=== PATIENT | female | born 1990 | race Caucasian/White ===

== ENCOUNTER → 2020-07-03 14:32 | Outpatient (BNVA) | payer MEDICAID, SELFPAY | PROVIDERS: Family Provider Family Medicine; PCP Family Medicine; Visit Provider Family Medicine | DX: N92.6 Irregular menstruation, unspecified (principal) | CPT/HCPCS: 81025 ==

== ENCOUNTER → 2021-04-04 11:38 | Outpatient (BNVA) | payer MEDICAID, SELFPAY | PROVIDERS: Family Provider Family Medicine; PCP Family Medicine; Visit Provider Emergency Medicine | DX: S99.929A Unspecified injury of unspecified foot, initial encounter (principal); X58.XXXA Exposure to other specified factors, initial encounter | CPT/HCPCS: 73660 ==

== ENCOUNTER → 2021-05-08 16:14 | Outpatient (BNVA) | payer MEDICAID, SELFPAY | PROVIDERS: Family Provider Family Medicine; PCP Family Medicine; Visit Provider Nurse Practitioner Family | DX: Z20.822 Contact with and (suspected) exposure to COVID-19 (principal); J06.9 Acute upper respiratory infection, unspecified | CPT/HCPCS: 87635 ==

== ENCOUNTER 2021-06-11 01:25 | Emergency (ER) | payer MEDICAID, SELFPAY ==
[2021-06-11 01:38] VITALS: BP 115/78; PULSE 83; RESP 18; TEMP 36.9; O2SAT 96; BMI 30.9
--- NOTE | 2021-06-11 02:51 | W.ED.ABDPA2 ---
HPI - Abdominal Pain General: Chief Complaint: Abdominal Pain Stated Complaint: abd pain Time Seen by Provider: 06/11/21 02:42 Source: patient and EMS Mode of arrival: EMS Limitations: no limitations History of Present Illness: HPI narrative: 30-year-old female who states she started having abdominal pain at 1130 to midnight. States pain was epigastric right upper quadrant and sharp in nature. States that its worst was an 8 out of 10 currently is 2 out of 10. Denies any nausea vomiting. States it also radiated to her back. Denies any dysuria or diarrhea. She denies any worsening improving factors. Associated Symptoms: Denies chills, dysuria and fever(s) Review of Systems Const: Denies: fever(s), chills, body aches or change in appetite Eyes: Denies: blurry vision or eye discomfort ENMT: Denies: throat pain or dental pain Card: Denies: chest pain Resp: Denies: dyspnea GI: Reports: abdominal pain : Denies: dysuria Musc: Denies: neck pain or back pain Skin/Breast: Denies: rash Neuro: Denies: headache(s) Psych: Denies: depression David/Lymph: Denies: easy bruising All/Imm: Denies: urticaria PFSH ED PFSH: Medical History (Updated 06/11/21 @ 05:28 by Patricia Diane MD) SHANIKA (generalized anxiety disorder) Insomnia Surgical History H/O tubal ligation Family History Other CAD (coronary artery disease) Cancer Hypertension Stroke Social History Second hand smoke exposure: No Alcohol intake: never Desire information about alcohol rehabilitation?: No Desire information about substance/drug rehabilitation?: No History of recent travel: No Current gender identity: Female Female Reproductive History: Spontaneous abortions: No Physical Exam Const: COMMON NORMALS: no acute distress, patient oriented x3 and healthy appearing HENMT: COMMON NORMALS: normocephalic and atraumatic HEAD & SCALP: normocephalic and atraumatic Eye: COMMON NORMALS: Equal, round and reactive pupils present and EOMs intact bilaterally PUPIL: Yes Equal, round and reactive pupils present Neck/C-Spine: COMMON NORMALS: full ROM and supple Chest: COMMONS NORMALS: normal inspection of the chest and normal palpation of entire chest wall Resp: COMMON NORMALS: normal respiratory effort, No retractions, No use of accessory muscles and clear to auscultation bilaterally AUSCULTATION: clear to auscultation bilaterally Cardio: COMMON NORMALS: regular rate, regular rhythm and No murmurs present (Cardio) RATE: regular rate RHYTHM: regular rhythm GI: COMMON NORMALS: Normal to inspection, nondistended, normoactive bowel sounds present, Soft to palpation, non-tender and no masses PALPATION: Yes Soft to palpation Extremity: COMMON NORMALS: normal to inspection and full ROM Neuro: COMMON NORMALS: patient oriented x3, moves all extremities and no focal motor deficits Psych: COMMON NORMALS: mental status grossly normal, Normal thought process present and cooperative THOUGHT PROCESS: Normal thought process present Skin: COMMON NORMALS: no rashes or lesions noted and no wounds GENERAL SKIN EXAM: no rashes or lesions noted Course Vital Signs: Vital signs: Vital Signs Temperature 98.4 F 06/11/21 01:38 Pulse Rate 83 06/11/21 01:38 Respiratory Rate 18 06/11/21 01:38 Blood Pressure 115/78 06/11/21 01:38 Pulse Oximetry 96 06/11/21 01:38 MDM - Abdominal Pain MDM Narrative: Medical decision making narrative: Patient presents here with abdominal pain with blood work and CT showed no acute findings. She also has had nausea and vomiting. She feels much improved here after IV meds. Will prescribe Reglan pain meds for home. She is to follow-up with PCP and return to ER if worsening. She understands agrees to plan. Lab Data: Labs: Lab Results 06/11/21 06/11/21 06/11/21 Range/Units 02:47 02:47 02:47 WBC 12.4 H (4.0-10.0) 10^3/ uL RBC 4.31 (4.1-5.3) 10^6/u L Hgb 12.7 (11.5-15.3) g/dL Hct 38.9 (37.0-47.0) % MCV 90.3 (81-99) fl MCH 29.5 (28.0-34.0) pg MCHC 32.6 (30.0-36.0) g/dL RDW 12.4 (12.1-15.1) % Plt Count 233 (130-400) 10^3/c mm MPV 11.6 H (7.4-10.4) fL Neut % (Auto) 75.6 % Lymph % (Auto) 16.0 % [place] % (Auto) 6.5 % Eos % (Auto) 0.9 % Baso % (Auto) 0.5 % Neut # (Auto) 9.39 H (1.8-7.7) 10^3/u L Lymph # (Auto) 2.0 (0.8-4.8) 10^3/u L [place] # (Auto) 0.8 (0.2-0.9) 10^3/u L Eos # (Auto) 0.1 (0.0-0.8) 10^3/u L Baso # (Auto) 0.1 (0.0-0.1) 10^3/u L Nucleated RBC % (a uto) 0 % Nucleated RBCs # 0.0 /100WBC Sodium 141 (136-145) mmol/L Potassium 4.1 (3.5-5.1) mmol/L Chloride 107 (98-107) mmol/L Carbon Dioxide 25 (22-29) mmol/L Anion Gap 13.1 (5-19) BUN 8 (6-20) mg/dL Creatinine 0.6 (0.5-0.9) mg/dL GFR Calculation 116.6 (90-130) mL/min Glucose 118 H (65-115) mg/dL Calculated Osmolal ity 291 (285-295) mOsm/k g Calcium 8.9 (8.5-10.5) mg/dL Total Bilirubin 0.4 (0.15-1.2) mg/dL AST 142 H (0-32) U/L ALT 81 H (0-33) U/L Alkaline Phosphata se 107 H (35-105) IU/L Total Protein 6.8 (6.6-8.7) g/dL Albumin 3.9 (3.5-5.2) g/dL Globulin 2.9 (1.3-4.6) g/dL Lipase 45 (13-60) U/L HCG, Qual Negative (Negative) Imaging Data ^: CT Abd/Pel: Attestation: I personally reviewed and interpreted this imaging study as follows: Radiologist's impression: [id number] [address] [address] Scan Report Signed Patient: Georgina Gerardo Unit #: [id number] : 1990 Age/Sex: 30 / F ADM Date: 06/11/21 Loc: ER Room/Bed: Attending Dr: Ordering Provider/Ordering MD: Patricia Diane MD Date of Service: 06/11/21 Procedure(s): CT abdomen pelvis w con* [id number] Accession Number(s): [id number] Report Number: [id number] PROCEDURE INFORMATION: Exam: CT Abdomen And Pelvis With Contrast Exam date and time: 06/11/2021 3:31 AM Age: 30 years old Clinical indication: Abdominal pain; Localized; Right upper quadrant (ruq); Additional info: Abd pain TECHNIQUE: Imaging protocol: Computed tomography of the abdomen and pelvis with contrast. Radiation optimization: All CT scans at this facility use at least one of these dose optimization techniques: automated exposure control; mA and/or kV adjustment per patient size (includes targeted exams where dose is matched to clinical indication); or iterative reconstruction. Contrast material: OMNI 300; Contrast volume: 95 ml; Contrast route: INTRAVENOUS (IV); COMPARISON: CT abdomen pelvis w con* [id number] 07/29/2019 5:59 PM RADIATION DOSE METRICS: Total DLP (mGy-cm): 1407.36 FINDINGS: Lungs: The lung bases are clear. Liver: There is mild fatty infiltration of the liver. Gallbladder and bile ducts: No visible gallstones or other definite gallbladder abnormality by CT. Ultrasound would be more sensitive for detecting gallstones, if clinically needed. No biliary tree dilation. Pancreas: Unremarkable. Spleen: Unremarkable. Adrenal glands: Unremarkable. Kidneys and ureters: Unremarkable. Stomach and bowel: There are no CT findings to strongly suggest diverticulitis. Appendix: The appendix is visualized and appears normal. Intraperitoneal space: No free air, ascites, or bowel distention. Vasculature: No evidence for abdominal aortic aneurysm. Lymph nodes: No retroperitoneal adenopathy. Urinary bladder: Unremarkable as visualized. Reproductive: The right ovary contains a 14 mm dominant follicle versus very small cyst. Significance unlikely due to small size. Very small amount of cul-de-sac fluid. Bones/joints: No significant acute finding. Soft tissues: No significant acute finding. CT/CT abdomen pelvis w con* [id number] IMPRESSION: 1. No visible gallstones by CT, see above. 2. Normal appendix. 3. No free air or bowel distention. 4. The right ovary contains a 14 mm dominant follicle versus very small cyst. Significance unlikely due to small size. Very small amount of cul-de-sac fluid. 5. Other findings discussed above. Radiation Dose CTDIVOL = (mGy): DLP = 1407.36 (mGy-cm) Dictated By: Binh Castelan MD Signed By: Binh Castelan MD Signed Date/Time: 06/11/21514 DD/ 3 Discharge Plan Discharge Patient Disposition: Home Clinical Impression: Abdominal pain Qualifiers: Abdominal location: generalized Qualified Code(s): R10.84 - Generalized abdominal pain Vomiting Qualifiers: Vomiting type: unspecified Vomiting Intractability: non-intractable Nausea presence: with nausea Qualified Code(s): R11.2 - Nausea with vomiting, unspecified Condition: Stable Prescriptions: New hydrocodone-acetaminophen 5-325 mg tablet 1 tab PO Q6H PRN (Reason: pain) Qty: 14 RF: 0 Reglan 10 mg tablet 10 mg PO Q6H PRN (Reason: nausea and vomiting) Qty: 20 RF: 0 No Action prednisone 20 mg tablet 40 mg PO DAILY 5 Days Qty: 10 RF: 0 Discharge Orders: Discharge ED (Routine); Ordered 06/11/21 Ordered By: Patricia Diane Referrals: Nasreen Foster MD [Primary Care Provider] - 1-3 days Discharge Diet: Advance as tolerated Discharge Activity: Resume usual activity Patient Instructions: Abdominal Pain (ED) Coding Level of Care 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
[2021-06-11] MEDS: morphine 4 mg/mL SDV 1 mL IVP (02:53)
[2021-06-11] MEDS: ondansetron 2 mg/ML SDV 2 mL 4 MG IVP (02:53)
[2021-06-11 03:16] LABS: Basophils # 0.1 10^3/uL (0.0-0.1); Basophils % 0.5 %; Eosinophils # 0.1 10^3/uL (0.0-0.8); Eosinophils % 0.9 %; Hematocrit 38.9 % (37.0-47.0); Hemoglobin 12.7 g/dL (11.5-15.3); Mean Corpuscular HGB Conc 32.6 g/dL (30.0-36.0); Mean Corpuscular Hemoglobin 29.5 pg (28.0-34.0); Mean Corpuscular Volume 90.3 fl (81-99); Mean Platelet Volume 11.6 fL (7.4-10.4); Monocytes # 0.8 10^3/uL (0.2-0.9); Monocytes % 6.5 %; Neutrophils # 9.39 10^3/uL (1.8-7.7); Neutrophils % 75.6 %; Nucleated Red Blood Cells % 0 %; Platelet Count 233 10^3/cmm (130-400); Red Blood Count 4.31 10^6/uL (4.1-5.3); Red Cell Distribution Width 12.4 % (12.1-15.1); White Blood Count 12.4 10^3/uL (4.0-10.0)
[2021-06-11 03:28] LABS: HCG, Serum Qual Negative (Negative)
--- NOTE | 2021-06-11 03:31 | CTR_ITS ---
PROCEDURE INFORMATION: Exam: CT Abdomen And Pelvis With Contrast Exam date and time: 06/11/2021 3:31 AM Age: 30 years old Clinical indication: Abdominal pain; Localized; Right upper quadrant (ruq); Additional info: Abd pain TECHNIQUE: Imaging protocol: Computed tomography of the abdomen and pelvis with contrast. Radiation optimization: All CT scans at this facility use at least one of these dose optimization techniques: automated exposure control; mA and/or kV adjustment per patient size (includes targeted exams where dose is matched to clinical indication); or iterative reconstruction. Contrast material: OMNI 300; Contrast volume: 95 ml; Contrast route: INTRAVENOUS (IV); COMPARISON: CT abdomen pelvis w con* [id number] 07/29/2019 5:59 PM RADIATION DOSE METRICS: Total DLP (mGy-cm): 1407.36 FINDINGS: Lungs: The lung bases are clear. Liver: There is mild fatty infiltration of the liver. Gallbladder and bile ducts: No visible gallstones or other definite gallbladder abnormality by CT. Ultrasound would be more sensitive for detecting gallstones, if clinically needed. No biliary tree dilation. Pancreas: Unremarkable. Spleen: Unremarkable. Adrenal glands: Unremarkable. Kidneys and ureters: Unremarkable. Stomach and bowel: There are no CT findings to strongly suggest diverticulitis. Appendix: The appendix is visualized and appears normal. Intraperitoneal space: No free air, ascites, or bowel distention. Vasculature: No evidence for abdominal aortic aneurysm. Lymph nodes: No retroperitoneal adenopathy. Urinary bladder: Unremarkable as visualized. Reproductive: The right ovary contains a 14 mm dominant follicle versus very small cyst. Significance unlikely due to small size. Very small amount of cul-de-sac fluid. Bones/joints: No significant acute finding. Soft tissues: No significant acute finding. CT/CT abdomen pelvis w con* [id number] IMPRESSION: 1. No visible gallstones by CT, see above. 2. Normal appendix. 3. No free air or bowel distention. 4. The right ovary contains a 14 mm dominant follicle versus very small cyst. Significance unlikely due to small size. Very small amount of cul-de-sac fluid. 5. Other findings discussed above. Radiation Dose CTDIVOL = (mGy): DLP = 1407.36 (mGy-cm)
[2021-06-11 03:34] LABS: Alanine Aminotransferase 81 U/L (0-33); Albumin Level 3.9 g/dL (3.5-5.2); Alkaline Phosphatase 107 IU/L (35-105); Anion Gap 13.1 (5-19); Aspartate Amino Transferase 142 U/L (0-32); Blood Urea Nitrogen 8 mg/dL (6-20); Calcium 8.9 mg/dL (8.5-10.5); Carbon Dioxide 25 mmol/L (22-29); Chloride 107 mmol/L (98-107); Globulin 2.9 g/dL (1.3-4.6); Glomerular Filtration Rate 116.6 mL/min (90-130); Glucose 118 mg/dL (65-115); Lipase 45 U/L (13-60); Osmolality Calculated 291 mOsm/kg (285-295); Potassium 4.1 mmol/L (3.5-5.1); Sodium 141 mmol/L (136-145); Total Bilirubin 0.4 mg/dL (0.15-1.2); Total Protein 6.8 g/dL (6.6-8.7)
[2021-06-11] MEDS: diphenhydrAMINE 50 mg/mL SDV 1mL IVP (04:22)
[2021-06-11] MEDS: metoclopramide 5 mg/mL SDV 2 mL 10 MG IVP (04:23)
[2021-06-11] MEDS: iohexol 300 mg/mL 100 mL Btl IV (04:32)
[2021-06-11 05:41] VITALS: BP 111/73; PULSE 87; RESP 16; TEMP 36.9; O2SAT 98
== END 2021-06-11 05:42 | disposition home or self-care (01) ==
PROVIDERS: Physician Assistant; Emergency Provider Emergency Medicine; PCP Family Medicine
DX: R10.84 Generalized abdominal pain (principal); R11.2 Nausea with vomiting, unspecified
CPT/HCPCS: 74177; 80053; 83690; 84703; 85025; 96374; 96375; 99283; J1200; J2270; J2405; J2765; Q9967

== ENCOUNTER → 2021-09-10 09:54 | Outpatient (BNVA) | payer MEDICAID, SELFPAY | PROVIDERS: PCP Family Medicine; Visit Provider Family Medicine | DX: R10.2 Pelvic and perineal pain (principal) | CPT/HCPCS: 81000 ==

== ENCOUNTER → 2022-03-13 10:32 | Outpatient (BNVA) | payer MEDICAID, SELFPAY | PROVIDERS: PCP Family Medicine; Visit Provider Surgery | DX: R10.9 Unspecified abdominal pain (principal) | CPT/HCPCS: 99203 ==

== ENCOUNTER → 2022-04-02 10:52 | Outpatient (BNVA) | payer MEDICAID, SELFPAY | PROVIDERS: PCP Family Medicine; Visit Provider Family Medicine | DX: Z12.4 Encounter for screening for malignant neoplasm of cervix (principal) | CPT/HCPCS: 87624 ==

== ENCOUNTER 2022-04-25 06:17 | Day surgery (SDC) | payer MEDICAID, SELFPAY ==
[2022-04-24 10:12] VITALS: BMI 29.5
[2022-04-25 06:35] VITALS: BP 127/86; PULSE 74; RESP 16; TEMP 36.1; O2SAT 98
[2022-04-25] MEDS: sodium chloride 0.9% 1,000 ML 30 ML IV (06:45)
[2022-04-25 06:49] LABS: OR HCG Qualitative Urine Negative (Negative)
--- NOTE | 2022-04-25 07:25 | PM.HP ---
Providers/Chief Complaint Primary Care Provider: Nasreen Foster MD Chief Complaint: Abdominal pain History of Present Illness Re Sandy Gerardo is a 31 year old female who presents for EGD. Nothing has changed since her last H&P Review of Systems General: Reports: 10 or more systems reviewed and unremarkable except in HPI and below Medications/Allergies Home Medications Medication Instructions Recorded Confirmed Last Taken Type sennosides 8.6 mg-docusate sodium 1 tab-cap PO DAILY PRN 30 Days #30 09/10/21 04/24/22 Unknown Rx 50 mg tablet (Senna with Docusate tab Sodium) Allergies Allergy/AdvReac Type Severity Reaction Status Date / Time codeine Allergy Unknown UNKNOWN Verified 04/24/22 10:19 Penicillins Allergy Unknown UNKNOWN Verified 04/24/22 10:19 amoxicillin Allergy SICK Verified 04/24/22 10:19 morphine Allergy SICK Verified 04/24/22 10:19 PFSH Acute PFSH: Medical History SHANIKA (generalized anxiety disorder) Insomnia Surgical History H/O tubal ligation Family History Mother Cancer Uterine cancer Other CAD (coronary artery disease) Hypertension Stroke Social History Smoking and tobacco status: never smoked Second hand smoke exposure: No Alcohol intake: never Desire information about alcohol rehabilitation?: No Desire information about substance/drug rehabilitation?: No History of recent travel: No Current gender identity: Female Female Reproductive History: Spontaneous abortions: No Vitals/I&O/Wt Last Vital Signs Temp 97 F L 04/25/22 06:35 Pulse 74 04/25/22 06:35 Resp 16 04/25/22 06:35 BP 127/86 04/25/22 06:35 Pulse Ox 98 04/25/22 06:35 Weight last 48 hrs Weight 167 lb Physical Exam Narrative: General : Patient is well developed , no acute distress, oriented x3 Head : Normal cephalic, a-traumatic. Ears : Pinnae and external canal are normal. Hearing is normal. Eyes : PERRLA, Sclera and injection are normal. No conjunctival discharge. Nose : Mucous membranes are without erythema. Throat : buccal mucosa is normal, gums are without significant recession or hypertrophy. Lungs : Equal chest rise bilaterally, no use of accessory muscles, trachea is midline. Cor : Rate and rhythm are normal. Abdomen : Soft, ND, NT, no g/r/m Extremities : No edema, no cyanosis or clubbing, dorsalis pedis pulses are present bilaterally, non-tender to palpation of calves. Upper extremities are normal bilaterally. Back : non-tender to palpation, no CVA tenderness. Neuro : CN II - XII intact, Upper and lower extremities have equal and full strength PE A&P Assessment and plan (1) Abdominal pain: Status: Acute Plan EGD The risks and benefits of the procedure, including bleeding, infection, intestinal perforation requiring surgery, missed lesion, or explained to the patient. He is understanding of the risks and wishes to proceed. 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
--- NOTE | 2022-04-25 07:30 | P.ANESASSM_ITS ---
Documented by User: Endy Villarreal Jr, [employer] OFFICE INSTRUCTOR 04/25/22 07:31 Pre-Anesthetic Assessment Height/Weight: Height 1.6 m Weight 75.75 kg Temp Pulse Resp BP Pulse Ox 97 F L 74 16 127/86 98 04/25/22 06:35 04/25/22 06:35 04/25/22 06:35 04/25/22 06:35 04/25/22 06:35 Preop Diagnosis: epigastric pain Operation Date: 04/25/22 07:30 Proposed Procedures p EGD 18530<R10.9(Not Applicable) - Adis Ramírez, DO Was Beta Sabiha taken within 24 hours: N/A Was Clonidine taken within 24 hours: N/A Last intake: Intake Last Liquid Date 04/24/22 Last Liquid Time 23:30 Last Solid Date 04/24/22 Last Solid Time 23:30 Social No alcohol and No tobacco Exam alert, oriented x 3, clear to auscultation bilaterally and regular rate & rhythm Airway Submandibular: within normal limits Cervical ROM: within normal limits Mallampati: Class II Dentition: full History/ROS No significant history except as noted and No significant complaints Pulmonary None reported CV/HEM None reported None reported Hepatic None reported GI None reported Metabolic None reported Musc/skel None reported Neuropsych None reported Anesthetic Plan ASA status: 2 Anesthesia: Anesthesia Evaluation and MAC Risk of > 500 ml blood loss (7ml/kg in children): No Medications/Allergies Home Medications Medication Instructions Recorded Confirmed Last Taken Type sennosides 8.6 mg-docusate sodium 1 tab-cap PO DAILY PRN 30 Days #30 09/10/21 04/24/22 Unknown Rx 50 mg tablet (Senna with Docusate tab Sodium) Allergies Allergy/AdvReac Type Severity Reaction Status Date / Time codeine Allergy Unknown UNKNOWN Verified 04/24/22 10:19 Penicillins Allergy Unknown UNKNOWN Verified 04/24/22 10:19 amoxicillin Allergy SICK Verified 04/24/22 10:19 morphine Allergy SICK Verified 04/24/22 10:19 Current Medications Generic Name Dose Route Start Last Admin Trade Name Freq PRN Reason Stop Dose Admin Sodium Chloride 1,000 mls @ 30 mls/hr 04/25/22 06:30 04/25/22 06:45 Sodium Chloride 0.9% IV 04/26/22 06:29 30 mls/hr .Q24H HERVE Administration PFSH Anesthesia Medical History SHANIKA (generalized anxiety disorder) Insomnia Surgical History H/O tubal ligation Family History Mother Cancer Uterine cancer Other CAD (coronary artery disease) Hypertension Stroke Social History Smoking and tobacco status: never smoked Second hand smoke exposure: No Alcohol intake: never Desire information about alcohol rehabilitation?: No Desire information about substance/drug rehabilitation?: No History of recent travel: No Current gender identity: Female Female Reproductive History Spontaneous abortions: No Data Anesthesia Cardiac Studies: No Data to Display
[2022-04-25 07:45] VITALS: BP 105/59; PULSE 74; RESP 20; TEMP 36.6; O2SAT 96
[2022-04-25 08:00] VITALS: BP 122/76; PULSE 75; RESP 16; O2SAT 98
--- NOTE | 2022-04-25 09:01 | ANE.PACU2 ---
Inpatient post-anesthesia follow up: Airway intact: Yes Vital signs: Temperature 97.9 F Pulse Rate 75 Respiratory Rate 16 Blood Pressure 122/76 Pulse Oximetry 98 Oxygen Delivery Me thod Room Air Oxygen Flow Rate 4 Fraction of Inspir ed Oxygen Hydration adequate: Yes Nausea and vomiting: No Pain level: 1 Mental status: Baseline
== END 2022-04-25 08:15 | disposition home or self-care (01) ==
PROVIDERS: Anesthesiology; PCP Family Medicine; Visit Provider Surgery
PROC: 0DJ08ZZ Inspection of Upper Intestinal Tract, Via Natural or Artificial Opening Endoscopic (ICD-10-PCS; CPT 43235; principal; 2022-04-25 07:30)
DX: R10.9 Unspecified abdominal pain (principal); K29.50 Unspecified chronic gastritis without bleeding; F41.1 Generalized anxiety disorder
CPT/HCPCS: 43239; 84703; 88305; J2704; J7030

== ENCOUNTER → 2022-05-09 13:19 | Outpatient (BNVA) | payer MEDICAID, SELFPAY | PROVIDERS: PCP Family Medicine; Visit Provider Surgery | DX: Z09 Encounter for follow-up examination after completed treatment for conditions other than malignant neoplasm (principal); K29.70 Gastritis, unspecified, without bleeding | CPT/HCPCS: 99212 ==

== ENCOUNTER 2022-06-19 08:49 | Outpatient (CLI) | payer MEDICAID, SELFPAY ==
--- NOTE | 2022-06-19 08:45 | US_ITS ---
WS: [id number] RIGHT UPPER QUADRANT ULTRASOUND HISTORY: Epigastric pain. COMPARISON: Prior CT 09/06/2021 Liver: 12.7 cm in length. Normal size liver. No bile duct dilatation or mass. Portal Vein: Normal hepatopetal flow with monophasic waveform. Gallbladder: Normally distended gallbladder. Moderate size stone within the gallbladder lumen. Stone measures 2.3 cm at its maximum diameter. No adjacent wall thickening or pericholecystic fluid. CBD: 0.4 cm Pancreas: Normal size and echogenicity. Right kidney: 9.3 cm in length. Normal size and echogenicity. No hydronephrosis or mass. Aorta and IVC: Unremarkable abdominal aorta and IVC. No ascites. US/US gall bladder [id number] IMPRESSION: Cholelithiasis. No evidence for acute cholecystitis.
== END 2022-06-19 08:50 | disposition home or self-care (01) ==
LOC: RAD 08:50
PROVIDERS: PCP Family Medicine; Visit Provider Surgery
DX: R10.9 Unspecified abdominal pain (principal); K80.20 Calculus of gallbladder without cholecystitis without obstruction
CPT/HCPCS: 76705

== ENCOUNTER 2022-07-28 06:13 | Day surgery (SDC) | payer MEDICAID, SELFPAY ==
[2022-07-25 13:24] VITALS: BMI 29.0
[2022-07-28] VITALS (11 sets, daily range): BP systolic 100–127; BP diastolic 66–79; PULSE 77–95; RESP 14–20; TEMP 36.7–36.9; O2SAT 96–100
[2022-07-28] MEDS: sodium chloride 0.9% 1,000 ML 30 ML IV (06:24)
--- NOTE | 2022-07-28 06:32 | ANES.PREANE2 ---
Pre-Anesthetic Assessment Height/Weight: Height 1.6 m Weight 74.389 kg O2 Del Method 07/28/22 06:22 Preop Diagnosis: Symptomatic Cholelithiasis Operation Date: 07/28/22 07:00 Proposed Procedures p Laparoscopic Cholecystectomy 53731,K80.20(Not Applicable) - Adis Ramírez DO Familial anesthetic complications: None Was Beta Sabiha taken within 24 hours: N/A Was Clonidine taken within 24 hours: N/A Last intake: > 8 hrs Social No alcohol and No tobacco Exam alert, oriented x 3, clear to auscultation bilaterally and regular rate & rhythm Airway Mallampati: Class II Dentition: other (missing) GI gastritis Anesthetic Plan ASA status: 2 Anesthesia: General Risk of > 500 ml blood loss (7ml/kg in children): No Medications/Allergies Home Medications Medication Instructions Recorded Confirmed Last Taken Type pantoprazole 40 mg tablet,delayed 40 mg PO DAILY #30 tabs 05/09/22 07/25/22 Unknown Rx release (Protonix) cetirizine 10 mg capsule (Zyrtec) 10 mg PO DAILY PRN Allergy Symptoms 05/12/22 07/25/22 Unknown History Allergies Allergy/AdvReac Type Severity Reaction Status Date / Time codeine Allergy Unknown ADR-Vomitin Verified 07/25/22 13:23 g Penicillins Allergy Unknown UNKNOWN Verified 07/25/22 13:23 amoxicillin Allergy SICK Verified 07/01/22 10:06 morphine Allergy ADR-Vomitin Verified 07/25/22 13:23 g Current Medications Generic Name Dose Route Start Last Admin Trade Name Freq PRN Reason Stop Dose Admin Sodium Chloride 1,000 mls @ 30 mls/hr 07/28/22 06:15 07/28/22 06:24 Sodium Chloride 0.9% IV 07/29/22 06:14 30 mls/hr .Q24H HERVE Administration PFSH Anesthesia Medical History SHANIKA (generalized anxiety disorder) Gastritis Insomnia Surgical History H/O tubal ligation Family History Mother Cancer Uterine cancer Other CAD (coronary artery disease) Hypertension Stroke Social History Smoking and tobacco status: never smoked Second hand smoke exposure: No Alcohol intake: never Desire information about alcohol rehabilitation?: No Desire information about substance/drug rehabilitation?: No History of recent travel: No Current gender identity: Female Female Reproductive History Date of last menstrual period: 07/08/22 Spontaneous abortions: No Data Anesthesia Cardiac Studies: No Data to Display
[2022-07-28 06:38] LABS: OR HCG Qualitative Urine Negative (Negative)
--- NOTE | 2022-07-28 06:49 | W.PM.OPSUD ---
Surgery/Procedure H&P Update DATE OF PROCEDURE: July 28, 2022 DATE H&P PERFORMED: 07/01/22 PREOP DIAGNOSIS: Symptomatic Cholelithiasis PLANNED PROCEDURE: Operation Date: 07/28/22 07:00 Proposed Procedures p Laparoscopic Cholecystectomy 73440,K80.20(Not Applicable) - Adis Ramírez DO
[2022-07-28] MEDS: vancomycin 1,000 MG in sodium chloride 0.9% 250 ML 250 MG IV (06:58)
--- NOTE | 2022-07-28 07:38 | P.OP_ITS ---
Operative Report Date of procedure: July 28, 2022 Pre-op diagnosis: Preop Diagnosis Symptomatic Cholelithiasis Post-op diagnosis: same Procedure done: Laparoscopic cholecystectomy Specimens removed/disposition: Gallbladder Surgeon: Dr. Adis Ramírez DO Anesthesia: General Estimated blood loss (mL): 5 Complications: None apparent Brief History: This is a very pleasant 31-year-old female with symptomatic cholelithiasis. Laparoscopic cholecystectomy is indicated. The risks and benefits were explained and documented. Procedure: Patient was wheeled into the operative room and placed on the OR table in a supine position. Abdomen was inspected prepped and draped in usual sterile fashion. Time-out was performed and all present were in agreement. A 15 blade scalp was used to make a stab incision in the left upper quadrant and intra- abdominal insufflation was achieved using a Veress needle. After localizing the tissue incisions were made and a 5 millimeter trocar was placed into the umbilicus as well as 2 in the right upper quadrant. A 12 millimeter trocar was placed in the epigastrium. Gallbladder was grasped and elevated. The triangle of Calot was carefully dissected using blunt dissection and electrocautery until the triangle of Calot clearly identified. The cystic duct was clipped proximally and double clipped distally. The duct was then ligated proximally. The cystic artery was doubly clipped and ligated. The gallbladder was then removed from the liver bed using electrocautery. The gallbladder was removed from the abdomen using an Endo-Catch bag through the epigastric incision. The liver bed was inspected and no bleeding was seen. The abdomen was irrigated and suctioned. All ports removed. Skin was washed and dried. Incisions were closed with 4-O Vicryl in a subcuticular interrupted fashion. Skin glue was applied. Patient tolerated the procedure well.
[2022-07-28] MEDS: ondansetron 2 mg/ML SDV 2 mL 4 MG IVP (09:32)
--- NOTE | 2022-07-28 09:56 | SUR.PHASEII ---
Patient complaining of mild abdominal pain, however, refusing any medication for pain.
--- NOTE | 2022-07-28 13:19 | ANE.PACU2 ---
Inpatient post-anesthesia follow up: Airway intact: Yes Vital signs: Temperature 98.0 F Pulse Rate 83 Respiratory Rate 16 Blood Pressure 116/76 Pulse Oximetry 96 Oxygen Delivery Me thod Room Air Oxygen Flow Rate 10 Fraction of Inspir ed Oxygen Hydration adequate: Yes Nausea and vomiting: No Pain level: 1 Mental status: Baseline
== END 2022-07-28 10:05 | disposition home or self-care (01) ==
PROVIDERS: Anesthesiology; PCP Family Medicine; Visit Provider Surgery
PROC: 0FT44ZZ Resection of Gallbladder, Percutaneous Endoscopic Approach (ICD-10-PCS; CPT 47562; principal; 2022-07-28 07:00)
DX: K80.10 Calculus of gallbladder with chronic cholecystitis without obstruction (principal); F41.1 Generalized anxiety disorder
CPT/HCPCS: 47562; 81025; 84703; 88304; J1170; J2250; J2405; J3010; J3370; J7030; J7050

== ENCOUNTER → 2022-09-28 14:40 | Outpatient (BNVA) | payer MEDICAID, SELFPAY | PROVIDERS: PCP Family Medicine; Visit Provider Emergency Medicine | DX: J02.9 Acute pharyngitis, unspecified (principal) | CPT/HCPCS: 87071; 87880 ==